=== PATIENT | male | born 1960 | race Caucasian/White ===

== ENCOUNTER 2021-09-20 00:27 | Day surgery (SDC) | payer BC, SELFPAY ==
[2021-09-14 12:30] VITALS: BMI 26.9
--- NOTE | 2021-09-19 11:10 | WPDGICN ---
Assessment and Plan Assessment and plan (1) Anemia: Code(s): D64.9 - Anemia, unspecified Status: Acute Assessment and Plan: EGD with possible biopsy or dilatation or cautery. Colonoscopy with possible biopsy or polypectomy or cautery or injection of substances. (2) COVID-19: Code(s): U07.1 - COVID-19 Status: Acute Assessment and Plan: treated as an outpatient 2 months ago. No residual symptoms GI Consult Note Consult date/time: 09/19/21 11:10 HPI: Jayden Askew is a 60 year old male who has been found to be markedly anemic. His hemoglobin is 7.5. He does not see blood in his stools. His serum iron studies were within the normal range. denies abdominal pain nausea or vomiting . He has lost about 40 lb in last year but he states his appetite is great. He had COVID a couple months ago and took the medication that started with ADD. It sounds like it was dexamethasone. At any rate while he was taking his stools were black and he had vague abdominal pain about 30 minutes after each dose. He denies ever having an ulcer or having previous black tarry stools. he does take Naprosyn daily.He has never had a colonoscopy Review of Systems Review of Systems: All systems reviewed & are unremarkable except as noted in HPI and below PMFSH Social History Social History Smoking packs per day: 3 Smoking cigarettes per day: 60.0 Years smoked: 20 Smoking pack-years: 60.00 Smoking status: Former smoker Tobacco type: cigarettes Alcohol intake: current Substance use: current Substance use type: marijuana Other substance usage details: [employer]EE[employer]CCASS[employer]AL[employer] Living arrangements: with family Spiritual care concerns: No Meds Home Medications and Allergies Home Medications Medication Instructions Recorded Confirmed Type ferrous sulfate 325 mg PO BID 09/14/21 09/14/21 History hydrocodone-acetaminophen 1 - 2 tablet PO DAILY PRN 09/14/21 09/14/21 History metoprolol tartrate 50 mg PO BID 09/14/21 09/14/21 History naproxen 500 mg PO DAILY 09/14/21 09/14/21 History pantoprazole 40 mg PO DAILY 09/14/21 09/14/21 History Allergies Allergy/AdvReac Type Severity Reaction Status Date / Time No Known Allergies Allergy Verified 09/20/21 06:35 Exam Const: General: alert Orientation/consciousness: patient oriented x3 Resp: Auscultation: clear to auscultation bilaterally Cardio: Rhythm: regular rhythm GI: GI Palp: Yes Soft to palpation and No Tenderness to palpation present (GI) Neuro: General: patient oriented x3 AMG Consult Billing Observation Consult [id number] New Pt Lvl 3 Detail
[2021-09-20 06:20] VITALS: BP 138/81; PULSE 64; RESP 18; TEMP 36.2; O2SAT 100; BMI 26.8
[2021-09-20] MEDS: LACTATED RINGERS 1,000 ML 150 ML IV CONT (06:54)
--- NOTE | 2021-09-20 07:15 | P.PNAN_ITS ---
Anes - Initial Pre Proc Eval Procedure: Operation Date: 09/20/21 07:30 Proposed Procedures p Esophagogastroduodenoscopy & Colonoscopy - Nixon Isaac MD Date/Time: 09/20/21 07:15 Surgeon: Nixon Isaac MD Pre Op Diagnosis: GI bleed Patient Data Age: 60 Gender: M Height: 1.85 m Weight: 92.3 kg Last Vital Signs Temp 97.1 F L 09/20/21 06:20 Pulse 64 09/20/21 06:20 Resp 18 09/20/21 06:20 BP 138/81 09/20/21 06:20 Pulse Ox 100 09/20/21 06:20 Allergies Allergy/AdvReac Type Severity Reaction Status Date / Time No Known Allergies Allergy Verified 09/20/21 06:35 Home Medications Medication Instructions Recorded Confirmed Type ferrous sulfate 325 mg PO BID 09/14/21 09/14/21 History hydrocodone-acetaminophen 1 - 2 tablet PO DAILY PRN 09/14/21 09/14/21 History metoprolol tartrate 50 mg PO BID 09/14/21 09/14/21 History naproxen 500 mg PO DAILY 09/14/21 09/14/21 History pantoprazole 40 mg PO DAILY 09/14/21 09/14/21 History Patient hx anesthesia problems: none Family hx anesthesia problems: none Results Review: All pre-operative results and documents have been reviewed as part of the pre-operative evaluation. [facility] Social History Social History Smoking packs per day: 3 Smoking cigarettes per day: 60.0 Years smoked: 20 Smoking pack-years: 60.00 Smoking status: Former smoker Tobacco type: cigarettes Alcohol intake: current Substance use: current Substance use type: marijuana Other substance usage details: [employer] OCCASSIONALY Living arrangements: with family Spiritual care concerns: No Anes - Eval Final PreProcedure Day of Procedure 09/20/21 07:15 Patient weight: overweight Heart: regular rate and rhythm Lungs: clear to auscultation Airway: Mallampati scale class II Neurological: alert and oriented Last oral intake: >/= 8 hours ASA classification: II Emergent: no Anesthetic plan: proceed Anesthesia type and monitoring: general GIVS and standard monitoring Results Review: All pre-operative results and documents have been reviewed as part of the pre-operative evaluation. Informed Consent: The patient's anesthetic plan and its attendant risks and benefits were discussed with the patient/family/POA. Questions were solicited and answers provided to the satisfaction of the patient/family/POA.
[2021-09-20 07:55] VITALS: BP 115/74; PULSE 71; RESP 19; O2SAT 99
--- NOTE | 2021-09-20 07:55 | SUR.OPER ---
EGD START 729, END 734 COLONOSCOPY START 742, END 075
[2021-09-20 08:05] VITALS: BP 127/79; PULSE 59; RESP 19; O2SAT 100
[2021-09-20 08:15] VITALS: BP 134/88; PULSE 55; RESP 19; O2SAT 100
== END 2021-09-20 08:28 | disposition home or self-care (01) ==
PROVIDERS: PCP Internal Medicine; Visit Provider Internal Medicine Gastroenterology
PROC: 0DJ08ZZ Inspection of Upper Intestinal Tract, Via Natural or Artificial Opening Endoscopic (ICD-10-PCS; CPT 43235; principal; 2021-09-20 07:30)
DX: Z12.11 Encounter for screening for malignant neoplasm of colon (principal); K57.30 Diverticulosis of large intestine without perforation or abscess without bleeding; K22.70 Barrett's esophagus without dysplasia; K29.70 Gastritis, unspecified, without bleeding; D64.9 Anemia, unspecified; Z86.16 Personal history of COVID-19; Z87.891 Personal history of nicotine dependence; F12.90 Cannabis use, unspecified, uncomplicated
CPT/HCPCS: 45378; 43239; 87081; 88305; J2704; J7120